=== PATIENT | male | born 1950 | race Asian ===

== ENCOUNTER 2019-07-13 15:46 | Emergency (ER) | payer MEDICARE, OTHER, SELFPAY ==
[2019-07-13 15:51] VITALS: BP 165/96; PULSE 86; RESP 14; TEMP 36.8; O2SAT 99; BMI 25.7
--- NOTE | 2019-07-13 16:26 | DI.RAD.S_ITS ---
PROCEDURE: XR ACUTE ABDOMEN SERIES INDICATIONS: abd distention, constipation TECHNIQUE: One view chest and two views of the abdomen were acquired. COMPARISON: None. FINDINGS: Surgical changes and devices: None. Chest: Prominent perihilar interstitial markings and prominence of the vascular suite in the perihilar regions are present there is no large area of pulmonary consolidation. No effusion or pneumothorax is evident there may be a calcified granuloma at the left lung base. Pleural thickening versus scarring within the lung apices is present. There is aortic atherosclerosis. Heart size is normal. No pleural effusions. No pneumoperitoneum. Abdomen: A few borderline prominent air-filled small bowel loops within the right upper quadrant are identified. No definite air-fluid levels are seen. Air and stool are identified throughout the colon. A moderate to large amount of residual stool is identified within the pelvis. No suspicious calcifications. Visualized solid organ contours appear normal. Bones: No suspicious bony lesions. Degenerative changes of the spine, shoulders, and bilateral hips are age-appropriate. An age-indeterminate compression deformity involving the L2 vertebral body is present. IMPRESSION: 1. Probable right upper quadrant small bowel ileus. 2. No bowel obstruction. 3. Moderate residual stool within the colon. 4. Chronic interstitial changes versus vascular congestion of the lungs. 5. Age-indeterminate L2 compression deformity. Dictated by: Josemanuel Bey M.D. on 07/13/2019 at 16:15 Approved by: Josemanuel Bey M.D. on 07/13/2019 at 16:18
[2019-07-13 16:32] LABS: Bacteria Urine None Seen
[2019-07-13 16:48] LABS: Appearance Urine UA CLEAR; Bilirubin Urine UA NEGATIVE (NEGATIVE); Color Urine UA YELLOW; Glucose Urine UA NEGATIVE (Negative); Ketones Urine UA TRACE (NEGATIVE); Leukocyte Esterase Urine UA NEGATIVE (NEGATIVE); Nitrite Urine UA NEGATIVE (Negative); Occult Blood Urine UA NEGATIVE (Negative); Protein Urine UA NEGATIVE (Negative); Specific Gravity Urine UA 1.015 (1.000-1.035); Urobilinogen Urine UA 0.2 E.U./dL (0.2)
[2019-07-13 17:10] LABS: Add Manual Diff / Slide Review NO; Basophils Absolute Auto 0 /uL (0-100); Basophils Percent Auto 0.2 % (0-2); Eosinophils Absolute Auto 100 /uL (0-450); Eosinophils Percent Auto 1.1 % (2-4); Hematocrit 47.5 % (41-53); Hemoglobin 16.1 g/dL (13.5-17.5); Lymphocytes Absolute Auto 1300 /uL (1100-4500); Lymphocytes Percent Auto 19.2 % (25-40); Mean Corpuscular HGB Conc 33.8 % (30-36); Mean Corpuscular Hemoglobin 30.3 PG (26-34); Mean Corpuscular Volume 89.5 fL (80-100); Monocytes Absolute Auto 600 /uL (0-900); Monocytes Percent Auto 8.1 % (3-14); Neutrophils Absolute Auto 5000 /uL (1500-7000); Neutrophils Percent Auto 71.4 % (50-75); Platelet Count 195 X10^3/uL (150-400); Red Blood Cell Count 5.31 X10^6/uL (4.5-5.9); Red Cell Distribution Width 13.5 % (11.6-14.8)
[2019-07-13 17:13] LABS: Culture Indicated Urine Cult Not Indicated; RBC Urine 0-1/HPF (0-5/HPF); Squamous Epithelial Cell Urine 0-1 /HPF (0-5/HPF); WBC Urine 0-1/HPF (0-5/HPF)
[2019-07-13 17:24] LABS: Alanine Aminotransferase 11 IU/L (21-72); Albumin 4.5 g/dL (3.5-5.0); Albumin Globulin Ratio 1.4 (1.0-2.8); Alkaline Phosphatase 80 U/L (38-126); Amylase 95 U/L (30-110); Aspartate Aminotransferase 26 IU/L (17-59); BUN Creatinine Ratio 18.8 (6-22); Bilirubin Total 0.7 mg/dL (0.2-1.3); Blood Urea Nitrogen 15 mg/dL (9-20); Calcium 9.8 mg/dL (8.4-10.2); Carbon Dioxide 27 mmol/L (22-32); Chloride 102 mmol/L (98-107); Estimated Glomerular Filt Rate > 60.0 mL/min (>60); Globulin 3.3 g/dL (1.7-4.1); Glucose 105 mg/dL (80-110); HEMOLYSIS < 15 (0-50); Lipase 113 U/L (23-300); Potassium 4.4 mmol/L (3.4-5.1); Sodium 140 mmol/L (137-145); Total Protein 7.8 g/dL (6.3-8.2)
[2019-07-13] MEDS: MAGNESIUM CITRATE 300 ML SOLUTION PO (18:35)
--- NOTE | 2019-07-13 18:35 | PC.NURSE ---
Received report on pt from OMAR Zepeda. pt resting in bed awaiting DC. MAg citrate given and instructed on how to use at home. Pt will keep nice in place until following up with PCP. Nice bag changed to leg bag. instructed on how to clean and care for catheter and bag changes. Educated on DC instructions and both pt and verbalized understanding. wheeled to front of ED entrance.
[2019-07-13 18:37] VITALS: BP 158/70; PULSE 66; RESP 16; O2SAT 97
--- NOTE | 2019-07-13 18:40 | ED.MALEGU ---
HPI - Male Genitourinary <SANDRITA Prieto - Last Filed: 07/13/19 18:51> General Chief complaint: Urogenital-Male Stated complaint: Trouble urinating Time Seen by Provider: 07/13/19 16:00 Source: patient Mode of arrival: Ambulatory Limitations: no limitations History of Present Illness HPI Narrative: The patient is a 69-year-old male nonsmoker with history of Parkinson's disease who presents with his and son for chief complaint of urinary difficulties. He states he has not been able to fully empty his bladder since last night. He complains of suprapubic pressure. He denies any fevers nausea vomiting or diarrhea. He denies any dysuria urgency or frequency. He states he has not had any urinary difficulties before. He does note that he was constipated, with the last bowel movement on Monday. He states he took an enema this morning and had a good bowel movement. Of note he is from out of town. He lives in [facility] and is in [place] visiting his son who works for [employer]. He currently denies any pain on my exam. Nursing protocol included a Plummer catheter prior to my evaluation. Related Data Allergies Allergy/AdvReac Type Severity Reaction Status Date / Time No Known Drug Allergies Allergy Verified 07/13/19 15:54 Review of Systems <SANDRITA Prieto - Last Filed: 07/13/19 18:51> Review of Systems Narrative: GENERAL: Denies chills, fatigue, malaise, fever, sweats. HEENT: Denies sinus pain, ear pain, sore throat, difficulty swallowing, dizziness. RESPIRATORY: Denies dyspnea, cough, wheezing, hemoptysis, sputum. CARDIOVASCULAR: Denies chest pain, palpitations, orthopnea, edema, GASTROINTESTINAL: See HPI : See HPI MUSCULOSKELETAL: denies weakness, joint pain, or bony pain SKIN: Denies rash, skin lesions, or other NEUROLOGIC: Denies weakness, headache, numbness, change in speech, confusion, seizures, incoordination. PSYCHIATRIC: No concerning psychosocial issues. 12 point review of systems is negative except for those stated above Exam <SANDRITA Prieto - Last Filed: 07/13/19 18:51> Narrative Exam Narrative: GENERAL: Chronically ill male in no acute distress HEAD: Atraumatic. Normocephalic. No temporal or scalp tenderness. EYES: Pupils equal round and reactive. Extraocular motions intact. No scleral icterus. No injection or drainage. ENT: Nose without bleeding, purulent drainage or septal hematoma. Throat without erythema, tonsillar hypertrophy or exudate. Uvula midline. Airway patent. NECK: Trachea midline. No JVD or lymphadenopathy. Supple, nontender, no meningeal signs. CARDIOVASCULAR: Regular rate and rhythm without murmurs, gallops, or rubs. No cough. No increased respiratory effort. No accessory muscle use. RESPIRATORY: Clear to auscultation. Breath sounds equal bilaterally. No wheezes, rales, or rhonchi. GASTROINTESTINAL: Abdomen soft, non-tender, nondistended. No hepato-splenomegaly, or palpable masses. No guarding. Active bowel sounds all 4 quadrants. No pain to palpation all 4 quadrants. Plummer catheter in place draining clear yellow urine. EXTREMITIES: No clubbing, cyanosis, or edema. No joint tenderness, effusion, or edema noted. BACK: Nontender without deformity or crepitance. No flank tenderness. NEURO: AOx3. SKIN: No rash or erythema. Initial Vital Signs Initial Vital Signs: Vital Signs Temperature 98.2 F 07/13/19 15:51 Pulse Rate 86 07/13/19 15:51 Respiratory Rate 14 07/13/19 15:51 Blood Pressure 165/96 H 07/13/19 15:51 Pulse Oximetry 99 07/13/19 15:51 <Karime Gaffney DO - Last Filed: 07/21/19 01:40> Initial Vital Signs Initial Vital Signs: Vital Signs Temperature 98.2 F 07/13/19 15:51 Pulse Rate 86 07/13/19 15:51 Respiratory Rate 14 07/13/19 15:51 Blood Pressure 165/96 H 07/13/19 15:51 Pulse Oximetry 99 07/13/19 15:51 Course <SANDRITA Prieto - Last Filed: 07/13/19 18:51> Orders Ordered: Discontinued Medications Magnesium Citrate (Magnesium Citrate) 300 ml PO NOW ONE Stop: 07/13/19 18:01 Last Admin: 07/13/19 18:35 Dose: 300 ml Documented by: AGGIE Vital Signs Vital signs: Vital Signs - 8 hr 07/13/19 15:51 07/13/19 18:37 Temperature 98.2 F Pulse Rate 86 66 Respiratory Rate 14 16 Blood Pressure 165/96 H 158/70 H Pulse Oximetry 99 97 <Karime Gaffney DO - Last Filed: 07/21/19 01:40> Orders Ordered: Discontinued Medications Magnesium Citrate (Magnesium Citrate) 300 ml PO NOW ONE Stop: 07/13/19 18:01 Last Admin: 07/13/19 18:35 Dose: 300 ml Documented by: AGGIE Vital Signs Vital signs: Vital Signs - 8 hr 07/13/19 15:51 07/13/19 18:37 Temperature 98.2 F Pulse Rate 86 66 Respiratory Rate 14 16 Blood Pressure 165/96 H 158/70 H Pulse Oximetry 99 97 MDM - Male Genitourinary <LEN Prieto- - Last Filed: 07/13/19 18:51> Lab Data Result diagrams: 07/13/19 16:42 07/13/19 16:42 Labs: Lab Results 07/13/19 07/13/19 07/13/19 Range/Units 16:31 16:42 16:42 WBC 7.0 (4.5-11.0) X10^3/uL RBC 5.31 (4.5-5.9) X10^6/uL Hgb 16.1 (13.5-17.5) g/dL Hct 47.5 (41-53) % MCV 89.5 (80-100) fL MCH 30.3 (26-34) PG MCHC 33.8 (30-36) % RDW 13.5 (11.6-14.8) % Plt Count 195 (150-400) X10^3/uL Neut % (Auto) 71.4 (50-75) % Lymph % (Auto) 19.2 L (25-40) % [place] % (Auto) 8.1 (3-14) % Eos % (Auto) 1.1 L (2-4) % Baso % (Auto) 0.2 (0-2) % Neut # (Auto) 5000 (6825-3477) /uL Lymph # (Auto) 1300 (2275-6590) /uL [place] # (Auto) 600 (0-900) /uL Eos # (Auto) 100 (0-450) /uL Baso # (Auto) 0 (0-100) /uL Sodium 140 (137-145) mmol/L Potassium 4.4 (3.4-5.1) mmol/L Chloride 102 (98-107) mmol/L Carbon Dioxide 27 (22-32) mmol/L BUN 15 (9-20) mg/dL Creatinine 0.80 (0.66-1.25) mg/dL Estimated GFR > 60.0 (>60) mL/min BUN/Creatinine Ratio 18.8 (6-22) Glucose 105 (80-110) mg/dL Calcium 9.8 (8.4-10.2) mg/dL Total Bilirubin 0.7 (0.2-1.3) mg/dL AST 26 (17-59) IU/L ALT 11 L (21-72) IU/L Alkaline Phosphatase 80 (38-126) U/L Total Protein 7.8 (6.3-8.2) g/dL Albumin 4.5 (3.5-5.0) g/dL Globulin 3.3 (1.7-4.1) g/dL Albumin/Globulin Ratio 1.4 (1.0-2.8) Amylase 95 (30-110) U/L Lipase 113 (23-300) U/L Urine Color Yellow Urine Appearance Clear Urine pH 5.0 (4.5-8.0) Ur Specific [place] 1.015 (1.000-1.035) Urine Protein Negative (Negative) Urine Glucose (UA) Negative (Negative) g/dL Urine Ketones Trace H (NEGATIVE) Urine Occult Blood Negative (Negative) Urine Nitrate Negative (Negative) Urine Bilirubin Negative (NEGATIVE) Urine Urobilinogen 0.2 (0.2) E.U./dL Ur Leukocyte Esterase Negative (NEGATIVE) Urine RBC 0-1/hpf (0-5/HPF) Urine WBC 0-1/hpf (0-5/HPF) Ur Squamous Epith Cells 0-1 /hpf (0-5/HPF) Urine Bacteria None seen (None) Ur Culture Indicated? Cult not indicated Imaging Data Abdomen x-ray: Radiologist's impression: [address] [address] XRay Report Signed Patient: Nishant GrantjMehnMR#: [id number] : 1950Acct:[id number] Age/Sex: 69 / MDate of Service: 07/13/19 Loc: ED Accession Number: [id number] Procedure: XR acute abdomen series Ordering Provider: Estefani LaBC PROCEDURE: XR ACUTE ABDOMEN SERIES INDICATIONS: abd distention, constipation TECHNIQUE: One view chest and two views of the abdomen were acquired. COMPARISON: None. FINDINGS: Surgical changes and devices: None. Chest: Prominent perihilar interstitial markings and prominence of the vascular suite in the perihilar regions are present there is no large area of pulmonary consolidation. No effusion or pneumothorax is evident there may be a calcified granuloma at the left lung base. Pleural thickening versus scarring within the lung apices is present. There is aortic atherosclerosis. Heart size is normal. No pleural effusions. No pneumoperitoneum. Abdomen: A few borderline prominent air-filled small bowel loops within the right upper quadrant are identified. No definite air-fluid levels are seen. Air and stool are identified throughout the colon. A moderate to large amount of residual stool is identified within the pelvis. No suspicious calcifications. Visualized solid organ contours appear normal. Bones: No suspicious bony lesions. Degenerative changes of the spine, shoulders, and bilateral hips are age-appropriate. An age-indeterminate compression deformity involving the L2 vertebral body is present. IMPRESSION: 1. Probable right upper quadrant small bowel ileus. 2. No bowel obstruction. 3. Moderate residual stool within the colon. 4. Chronic interstitial changes versus vascular congestion of the lungs. 5. Age-indeterminate L2 compression deformity. Dictated by: Josemanuel Bye M.D. on 07/13/2019 at 16:15 Approved by: Josemanuel Bey M.D. on 07/13/2019 at 16:18 [facility] Narrative Medical decision making narrative: The patient is a 69-year-old male who presents with a chief complaint of constipation and difficulty urinating. A Plummer catheter was inserted by nursing prior to my examination. X-ray indicates constipation with possible ileus. However possible right upper quadrant ileus is unlikely as he has no pain to that area and had a bowel movement this morning. Given his stool burden, I did give him a dose of magnesium citrate to take at home. His urine has no signs of infection and his lab work is normal. I did discuss the finding of an age-indeterminate L2 compression deformity on his x-ray. Patient and family deny any recent trauma he denies any back pain. He denies any incontinence of bowel incontinence of bladder saddle anesthesia. I encouraged PCP follow-up as this is likely an incidental finding. I discussed at length coming back to emergency department for any acute concerns such as incontinence of bowel, incontinence of bladder saddle anesthesia. Encourage PCP follow-up regarding Plummer catheter as soon as possible. Patient's plan is to follow up upon return to home on Monday. Discussed at length monitoring for fever and signs of infection and following up in the emergency department if any of this occurs. No questions or concerns upon discharge. Patient and family state understanding of Plummer catheter care, monitoring for signs of infection, discharge instructions as well as follow-up care and return precautions. <Karime Gaffney, DO - Last Filed: 07/21/19 01:40> Lab Data Labs: Lab Results 07/13/19 07/13/19 07/13/19 Range/Units 16:31 16:42 16:42 WBC 7.0 (4.5-11.0) X10^3/uL RBC 5.31 (4.5-5.9) X10^6/uL Hgb 16.1 (13.5-17.5) g/dL Hct 47.5 (41-53) % MCV 89.5 (80-100) fL MCH 30.3 (26-34) PG MCHC 33.8 (30-36) % RDW 13.5 (11.6-14.8) % Plt Count 195 (150-400) X10^3/uL Neut % (Auto) 71.4 (50-75) % Lymph % (Auto) 19.2 L (25-40) % [place] % (Auto) 8.1 (3-14) % Eos % (Auto) 1.1 L (2-4) % Baso % (Auto) 0.2 (0-2) % Neut # (Auto) 5000 (0212-3906) /uL Lymph # (Auto) 1300 (2073-7241) /uL [place] # (Auto) 600 (0-900) /uL Eos # (Auto) 100 (0-450) /uL Baso # (Auto) 0 (0-100) /uL Sodium 140 (137-145) mmol/L Potassium 4.4 (3.4-5.1) mmol/L Chloride 102 (98-107) mmol/L Carbon Dioxide 27 (22-32) mmol/L BUN 15 (9-20) mg/dL Creatinine 0.80 (0.66-1.25) mg/dL Estimated GFR > 60.0 (>60) mL/min BUN/Creatinine Ratio 18.8 (6-22) Glucose 105 (80-110) mg/dL Calcium 9.8 (8.4-10.2) mg/dL Total Bilirubin 0.7 (0.2-1.3) mg/dL AST 26 (17-59) IU/L ALT 11 L (21-72) IU/L Alkaline Phosphatase 80 (38-126) U/L Total Protein 7.8 (6.3-8.2) g/dL Albumin 4.5 (3.5-5.0) g/dL Globulin 3.3 (1.7-4.1) g/dL Albumin/Globulin Ratio 1.4 (1.0-2.8) Amylase 95 (30-110) U/L Lipase 113 (23-300) U/L Urine Color Yellow Urine Appearance Clear Urine pH 5.0 (4.5-8.0) Ur Specific [place] 1.015 (1.000-1.035) Urine Protein Negative (Negative) Urine Glucose (UA) Negative (Negative) g/dL Urine Ketones Trace H (NEGATIVE) Urine Occult Blood Negative (Negative) Urine Nitrate Negative (Negative) Urine Bilirubin Negative (NEGATIVE) Urine Urobilinogen 0.2 (0.2) E.U./dL Ur Leukocyte Esterase Negative (NEGATIVE) Urine RBC 0-1/hpf (0-5/HPF) Urine WBC 0-1/hpf (0-5/HPF) Ur Squamous Epith Cells 0-1 /hpf (0-5/HPF) Urine Bacteria None seen (None) Ur Culture Indicated? Cult not indicated Discharge Plan Departure Patient Disposition: Home Clinical Impression: Other urinary problems Constipation Qualifiers: Constipation type: unspecified constipation type Qualified Code(s): K59.00 - Constipation, unspecified Discharge Date/Time: 07/13/19 18:38 Instructions: How to Care for Your Plummer Catheter -- Male, Constipation (Alternative Therapy), DI for Constipation Activity Restrictions/Additional Instructions: Today we found that your urine has no signs of infection. Your lab work is good. Your x-ray shows constipation. We have given you magnesium citrate to take when you get home to help have a bowel movement. Please come back to emergency department for any acute concerns such as abdominal pain with fever etc Please follow up with primary care provider in the next few days. Please be sure to take care of your Plummer catheter.
== END 2019-07-13 18:38 | disposition home or self-care (01) ==
PROVIDERS: Emergency Provider Nurse Practitioner Family
DX: N39.9 Disorder of urinary system, unspecified (principal); K29.00 Acute gastritis without bleeding
CPT/HCPCS: 36415; 51701; 74022; 80053; 81001; 82150; 83690; 85025; 99283; 99284